=== PATIENT | male | born 1935 | race African-American/Black ===

== ENCOUNTER 2024-09-21 15:34 | Emergency (ER) | payer MEDICARE, OTHER, SELFPAY ==
[2024-09-21 15:55] VITALS: BP 173/80; PULSE 53; RESP 20; TEMP 36.6; O2SAT 96; BMI 25.5
--- NOTE | 2024-09-21 16:05 | EKG_ITS ---
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1935 Requested By: Fahad Disla ([facility]) Order Number: [id number] Reading MD: Fahad Disla ([facility]) Measurements Intervals [place] Rate: 90 P: 47 OR: 179 QRS: -34 QRSD: 82 T: 20 QT: 376 QTc: 460 Interpretive Statements SINUS RHYTHM WITH OCCASIONAL SUPRAVENTRICULAR PREMATURE COMPLEXES MARKED LEFT AXIS DEVIATION [QRS AXIS < -30] LEFT VENTRICULAR HYPERTROPHY AND ST-T CHANGE [VOLTAGE CRITERIA PLUS ST/T ABNORMALITY] Compared to ECG 04/23/2021 09:32:50 Left-axis deviation now present Left ventricular hypertrophy now present ST (T wave) deviation now present /store/S0/[id number]/ecg/[id number].pdf
--- NOTE | 2024-09-21 16:05 | XR_ITS ---
Examination: PA lateral chest 2 views Technique: Upright PA lateral chest 2 views Exam date and time: September 21, 2024 1443 hrs. Indications: Shortness of breath chest pain beginning 5 days ago Findings: Normal heart size Scarring at the left lung base No lobar pneumonia or pulmonary edema Moderate thoracic spondylosis Impression: No pneumonia or pulmonary edema
--- NOTE | 2024-09-21 16:07 | PD.EDRME ---
Rapid Medical Screening Exam RME Arrival date/time: 09/21/24 15:34 89-year-old male with past medical history of hypertension and diabetes presents emergency department with granddaughter at bedside with multiple complaints of diarrhea, shortness of breath, generalized weakness, and visual hallucinations that have been ongoing for several days. Chief Complaint: Back Pain/Injury Time Seen by Provider: 09/21/24 16:05 Vital signs: Vital Signs Temperature 98 F 09/21/24 15:55 Pulse Rate 53 L 09/21/24 15:55 Respiratory Rate 20 09/21/24 15:55 Blood Pressure 173/80 H 09/21/24 15:55 Pulse Oximetry (%) 96 09/21/24 15:55 Oxygen Delivery Method Room Air 09/21/24 15:55 Vital signs reviewed by provider: Yes
--- NOTE | 2024-09-21 16:08 | XR_ITS ---
Examination: CT brain head without contrast. 2-D sagittal coronal reconstructions Date and time of exam:September 21, 2024 1632 hrs. Indications: Onset visual hallucinations beginning 3 days ago CTDI: vol (mGy):51.6 DLP: (mGycm):1069 Technique: Multiple CT axial sections of the brain have been obtained, 5 mm slice thickness. Contrast has not been administered. 2-D sagittal, coronal reconstructions have been obtained Low dose protocols were performed. One or more of the following dose reduction techniques were used; automated exposure control, adjustment of the mA and/or KV according to patient size, use of iterative reconstruction technique. Findings: No significant ventricular enlargement. Intra-axial or extra-axial hemorrhage density is not seen. No mass effect or midline shift Basal cisterns are not remarkable. Fourth ventricle is midline. Cranial vault intact. Impression: Negative for acute hemorrhage, mass effect or midline shift Consider brain MRI follow-up
[2024-09-21 16:24] LABS: Basophils # (Auto) 0.1 Thou/mm3 (0.0-0.2); Basophils % (Auto) 1 % (0-2.5); Eosinophils # (Auto) 0.1 Thou/mm3 (0.0-0.5); Eosinophils % (Auto) 1 % (0-10); Hematocrit 38.9 % (41.0-53.0); Hemoglobin 13.2 g/dL (13.5-16.0); Immature Granulocytes % (Auto) 0 % (0-0); Immature Granulocytes Auto 0.03 Thou/mm3 (0.00-0.00); Lymphocytes # (Auto) 2.9 Thou/mm3 (1.0-4.8); Lymphocytes % (Auto) 31 % (10-50); Mean Corpuscular HGB Conc 33.9 g/dl (31.0-37.0); Mean Corpuscular Hemoglobin 29.4 pg (25.0-35.0); Mean Corpuscular Volume 87 fL (80-100); Monocytes # (Auto) 0.8 Thou/mm3 (0.0-0.8); Monocytes % (Auto) 9 % (0-12); Neutrophils # (Auto) 5.3 Thou/mm3 (1.8-7.7); Neutrophils % (Auto) 58 % (37-80); Nucleated Red Blood Cell % 0 /100 WBC (0); Platelet Count 338 Thou/mm3 (140-440); RDW Standard Deviation 40.7 fL (35.1-43.9); Red Blood Count 4.49 Miln/mm3 (4.50-5.90); White Blood Count 9.2 Thou/mm3 (3.8-10.6)
[2024-09-21 16:42] LABS: INR 1.1 (0.9-1.3); Partial Thromboplastin Time 28.9 Seconds (22.0-36.0); Prothrombin Time 11.7 Seconds (9.0-12.2)
[2024-09-21 16:44] LABS: B-Type Natriuretic Peptide 547 pg/mL (0-100)
[2024-09-21 16:54] LABS: Alanine Aminotransferase < 7 U/L (10-49); Albumin, Serum 4.6 gm/dL (3.4-4.8); Albumin/Globulin Ratio 1.4 (1.2-2.2); Alkaline Phosphatase 90 U/L (46-116); Anion Gap 10 (7-16); Aspartate Amino Transferase 23 U/L (0-34); BUN/Creatinine Ratio 11 Ratio (12-20); Bilirubin,Total 0.8 mg/dL (0.3-1.2); Blood Urea Nitrogen 22 mg/dL (9-23); Calcium 9.9 mg/dL (8.3-10.6); Calcium (Corrected) 9.9 mg/dL (8.5-10.1); Carbon Dioxide 24.1 mMol/L (20.0-31.0); Chloride 102 mMol/L (98-107); Estimated Creatinine Clearance 24.3 mL/min (>60); Globulin 3.3 gm/dL (2.3-3.5); Glucose 165 mg/dL (74-106); Magnesium 1.8 mg/dL (1.6-2.6); Osmolality,Calculated 279 (275-295); Sodium 136 mMol/L (136-145); Total Protein 7.9 gm/dL (5.7-8.2); Troponin I 0.033 ng/mL (0.0-0.045); eGFR 32 See Note
--- NOTE | 2024-09-21 16:54 | EDNOTE_ITS ---
<Statement entered by Rachel Carlos MD - 09/21/24 22:06> As co-signing physician, I was present and available for consult prn. I concur with the plan and care as documented by the midlevel provider. ED Back Injury Pain RME/HPI General Chief Complaint: Back Pain/Injury Stated Complaint: BACK PAIN X 3 DAYS; DIARRHEA Time Seen by Provider: 09/21/24 16:05 Arrival date/time: 09/21/24 15:34 RME / HPI RME / HPI Narrative: 89-year-old male with past medical history of hypertension and diabetes presents emergency department with granddaughter at bedside with multiple complaints of diarrhea, shortness of breath, generalized weakness, and visual hallucinations that have been ongoing for several days. It comes and goes, severity mild. Patient also told me that for the last few days he been ran out of his m edication for diabetes and blood pressure. Family does pick up and delivery driver the medications this afternoon. Related Data Home Medications ?Medication ?Instructions ?Recorded ?Confirmed Amitriptyline Hcl * (ELAVIL *) 10 mg PO BID #0 tabs 12/05/16 Aspirin Ec * (ECOTRIN *) 81 mg PO QDAY ##0 12/05/16 Doxazosin Mesylate 2 mg PO QDAY ##0 12/05/16 Misoprostol * (CYTOTEC *) 2 tab PO BID #0 tabs 12/05/16 Multivitamins * (CENTRUM *) 1 tab PO QDAY #0 tabs 12/05/16 Promethazine Hcl SYRUP * 2 tbsp PO Q6HR PRN COUGH #0 mL 12/05/16 (PHENERGAN SYRUP *) baclofen 10 mg tablet 10 mg PO QDAY #0 tabs 12/05/16 cyanocobalamin (vitamin B-12) 1,000 mcg PO QDAY #0 tabs 12/05/16 1,000 mcg tablet (Vitamin B-12) glipizide 5 mg tablet 5 mg PO QDAY #0 tabs 12/05/16 hydrochlorothiazide 25 mg tablet 12.5 mg PO QDAY #0 tabs 12/05/16 lisinopril 10 mg tablet 5 mg PO QDAY #0 tabs 12/05/16 lisinopril 20 mg tablet 10 mg PO QDAY #0 tabs 12/05/16 loratadine 10 mg tablet (Claritin) 10 mg PO QDAY #0 tabs 12/05/16 pioglitazone 30 mg tablet (Actos) 30 mg PO QDAY #0 tabs 12/05/16 ranitidine HCl 150 mg tablet 150 mg PO BID #0 tabs 12/05/16 (Zantac) venlafaxine 75 mg capsule,extended 75 mg PO QDAY ##0 12/05/16 release 24 hr (Effexor XR) Allergies Allergy/AdvReac Type Severity Reaction Status Date / Time Penicillins Allergy Severe Swelling Verified 09/21/24 15:36 of Lip/Tongue/Throat shellfish derived Allergy Severe Swelling Verified 09/21/24 15:36 Review of Systems Review of Systems Narrative Review of Systems: Review of system reviewed and within normal limits except mentioned in HPI ED Exam Narrative Physical exam: VITAL SIGNS: Reviewed. GENERAL APPEARANCE: Alert and interactive, follows commands, no acute distress, HEAD AND FACE: Non-traumatic. ENT: PERRL, pink conjunctivitis, eyelid no trauma, Mucous membrane dry NECK: Supple, nontender, no nuchal rigidity. CHEST: No tenderness, no crepitus, no paradoxical movement, no retractions. LUNGS: Clear, well ventilated, symmetric, no rales, no wheezing, no ronchi, no stridor, good breath sounds bilaterally. HEART: Regular rate, regular rhythm, no murmur, no gallops. ABDOMEN: Soft, positive bowel sounds, nondistended, no guarding, nontender, no rebound, no masses, RECTAL: Deferred. GENITAL: Deferred. NEUROLOGICAL: Gross motor function intact sensory function intact, Appropriate for age. MUSCULOSKELETAL: low back nontender, full range of motion. EXTREMITIES: Nontender, full range of motion. SKIN: Color pink, dry, no rash, no lacerations, no abrasions, no contusions. LYMPHATICS: Deferred. Course Quality Measures none Orders Category Date Time Status EKG (ED ONLY) *Do not use* NOW Care 09/21/24 16:[address] head/brain wo con Stat Exams 09/21/24 16:08 Completed EKG (ED Only) Stat Exams 09/21/24 16:05 Draft XR chest 2V Stat Exams 09/21/24 16:05 Completed B-Type Natriuretic Peptide Stat Lab 09/21/24 16:16 Completed CBC Stat Lab 09/21/24 16:16 Completed Comprehensive Metabolic Panel Stat Lab 09/21/24 16:16 Completed Drug Screen,Urine Stat Lab 09/21/24 16:39 Completed Magnesium Stat Lab 09/21/24 16:16 Completed Partial Thromboplastin Time Stat Lab 09/21/24 16:16 Completed Prothrombin Time with INR Stat Lab 09/21/24 16:16 Completed Troponin I Stat Lab 09/21/24 16:16 Completed Urinalysis Stat Lab 09/21/24 16:39 Completed ALPRazoLAM [Xanax] Med 09/21/24 19:06 Discontinued 0.25 mg PO X1 ONE Sodium Chloride 0.9% 1000 ml [Ns] 1,000 ml Med 09/21/24 17:01 Discontinued IV 999 mls/hr Vital Signs Vital signs: Vital Signs Temperature 98 F 09/21/24 15:55 Pulse Rate 53 L 09/21/24 15:55 Respiratory Rate 20 09/21/24 15:55 Blood Pressure 173/80 H 09/21/24 15:55 Pulse Oximetry (%) 96 09/21/24 15:55 Oxygen Delivery Method Room Air 09/21/24 15:55 Back Pain / Injury MDM Narrative MDM Narrative:: 89-year-old male with past medical history of hypertension and diabetes presents emergency department with granddaughter at bedside with multiple complaints of diarrhea, shortness of breath, generalized weakness, and visual hallucinations that have been ongoing for several days. It comes and goes, severity mild. Patient also told me that for the last few days he been ran out of his medication for diabetes and blood pressure. Patient's workup all came back unremarkable except for slightly elevated BNP and creatinine of 2.0. Urinalysis no UTI CT scan of the head came back unremarkable. Chest x-ray also came back unremarkable. Patient data External records reviewed:: None Clinical information provided by:: patient and family Social determinants that could affect healthcare access:: none Patient has the following chronic illnesses:: Hypertension How is presenting disease/condition affected by chronic disease/condition?: exacerbated by Evaluation data The following diagnostics were reviewed and interpreted by me:: lab results, radiology exam(s) and EKG tracing(s) Lab and/or radiology exams considered but not ordered:: None Interpretation Summary: EKG shows sinus rhythm, ventricular to 90 bpm, WA interval 1 79 MS, no ST segment elevation depression noted. Patient's CT scan of the head came back unremarkable. Chest x-ray also came back with no acute pathology noted. Laboratory workup no UTI CBC no leukocytosis, CMP slight elevated creatinine of 2.0 which is the patient's baseline. BNP 547. Medications / Prescriptions Medications or Prescriptions considered but not ordered:: none Medication administrations:: Medication Administration History Discontinued Medications Alprazolam (Alprazolam 0.25 Mg Tablet) 0.25 mg PO X1 ONE Stop: 09/21/24 19:07 Sodium Chloride (Ns) 1,000 mls @ 999 mls/hr IV .Q1H1M ONE Stop: 09/21/24 18:01 Last Infusion: 09/21/24 18:14 Dose: Infused Documented By: Admin: 09/21/24 17:26 Dose: 999 mls/hr Documented By: MS Johnson, and IV fluids for addition Consultations Consultation(s) initiated? (list below): No Diagnosis Differential diagnosis back pain/injury: other (Dehydration gastroenteritis, poor medication compliance) Most likely diagnosis given after review of the tests above:: Dehydration, gastroenteritis Admission Indicated Admission indicated?: not indicated Admission Request Was there a request for admission?: No Disposition Plan Disposition Plan: Discharge Discharge Attestation Discharge Attestation: The patient and all family members were given an opportunity to ask questions and understood the discharge instructions. Discharge instructions specifically effects, indications for sooner follow up or return to the emergency department, and the expected course of current diagnosis. Patient condition: Stable Discharge Plan Plan Patient Disposition: HOME (Self Care) Disposition Comment: stable Prescriptions/Referrals Prescriptions/Med Rec: No Action Amitriptyline Hcl * (ELAVIL *) 10 MG tablet 10 mg PO BID Qty: 0 Aspirin Ec * (ECOTRIN *) 81 MG TABLET.DR 81 mg PO QDAY Qty: 0 cyanocobalamin (vitamin B-12) [Vitamin B-12] 1,000 MCG tablet 1,000 mcg PO QDAY Qty: 0 baclofen 10 MG tablet 10 mg PO QDAY Qty: 0 Doxazosin Mesylate 2 MG tablet 2 mg PO QDAY Qty: 0 venlafaxine [Effexor XR] 75 MG capsule,extended release 24hr 75 mg PO QDAY Qty: 0 lisinopril 20 MG tablet 10 mg PO QDAY Qty: 0 ranitidine HCl [Zantac] 150 MG tablet 150 mg PO BID Qty: 0 lisinopril 10 MG tablet 5 mg PO QDAY Qty: 0 hydrochlorothiazide 25 MG tablet 12.5 mg PO QDAY Qty: 0 pioglitazone [Actos] 30 MG tablet 30 mg PO QDAY Qty: 0 Patient Comments: FOR DIABETES loratadine [Claritin] 10 MG tablet 10 mg PO QDAY Qty: 0 glipizide 5 MG tablet 5 mg PO QDAY Qty: 0 Misoprostol * (CYTOTEC *) tablet 2 tab PO BID Qty: 0 Multivitamins * (CENTRUM *) 1 EACH tablet 1 tab PO QDAY Qty: 0 Promethazine Hcl SYRUP * (PHENERGAN SYRUP *) 6.25 MG/5 ML syrup 2 tbsp PO Q6HR PRN (Reason: COUGH) Qty: 0 Patient Comments: FOR NAUSEA OR VOMITING Referrals: No Primary/Family,Physician [Primary Care Provider] - In 1 week Problem List Clinical Impression: Acute dehydration, Gastroenteritis Patient/Caregiver Discharge Instructions Discharge Activity: activity as tolerated Education Materials: Dehydration Additional Instructions: Thank you for the opportunity for serving you today. You are stable for discharged . You are advised to: Follow-up with your PCP in 1 to 2 days Return to ED for worsening of symptoms Take medication as prescribed by your PCP Take your blood pressure medications right away when you arrive home Print Language: Lithuanian Stand Alone Forms: Bianca Award Info., Patient Portal Info Letter PA/CARLOS Supervising Physician MARY LOU/CARLOS Supervising Physician: MD Breanna
[2024-09-21 16:59] VITALS: BP 158/106; PULSE 99; RESP 17; TEMP 36.7; O2SAT 99
[2024-09-21 17:10] LABS: Collection Type, Urine Clean Catch
[2024-09-21 17:23] LABS: Bilirubin,Urine Negative (Negative); Blood,Urine 1+ (Negative); Clarity,Urine Clear (Clear/Hazy); Color,Urine Yellow (Lt Yel-Yel); Glucose, Urine Negative (Negative); Ketones,Urine Negative (Negative); Leukocyte Esterase,Urine Negative (Negative); Nitrite,Urine Negative (Negative); PH,Urine 5.5 (5.0-7.0); Protein,Urine 2+ (Neg - Trace); RBC,Urine 6 /hpf (0-3); Specific Gravity,Urine 1.015 (1.001-1.035); Squamous Epithelial Cell,Urine < 1 /hpf (0-5); Urobilinogen,Urine Negative mg/dL (0.0-1.0); WBC,Urine 2 /hpf (0-5)
[2024-09-21] MEDS: SODIUM CHLORIDE 0.9% 1000 ML 1,000 ML 999 ML IV (17:26)
[2024-09-21 17:47] LABS: Amphetamine/Methamp Scrn,U Negative (Negative); Barbiturate Screen,Urine Negative (Negative); Benzodiazepines Screen,Urine Negative (Negative); Benzoylecgonine Screen, Ur Negative (Negative); Fentanyl Screen,Urine Negative (Negative); Opiate Screen,Urine Negative (Negative); THC Screen,Urine Negative (Negative)
[2024-09-21 18:27] VITALS: BP 179/104; PULSE 80; RESP 24; TEMP 36.8; O2SAT 98
[2024-09-21] MEDS: ALPRazoLAM 0.25 MG TABLET PO (19:20)
[2024-09-21 19:49] VITALS: BP 170/116; PULSE 87; RESP 18; TEMP 36.7; O2SAT 99
== END 2024-09-21 19:29 | disposition home or self-care (01) ==
PROVIDERS: Emergency Provider Emergency Medicine
DX: E86.0 Dehydration (principal); K52.9 Noninfective gastroenteritis and colitis, unspecified; I10 Essential (primary) hypertension; E11.9 Type 2 diabetes mellitus without complications; R44.1 Visual hallucinations; R06.02 Shortness of breath
CPT/HCPCS: 36415; 70450; 71046; 80053; 80307; 81001; 83735; 83880; 84484; 85025; 85610; 85730; 93005; 96360; 99284; J7030; A9270

== ENCOUNTER → 2024-10-11 | Outpatient (CLI) | payer MEDICARE, OTHER, SELFPAY ==
--- NOTE | 2024-10-11 13:30 | ECHO_ITS ---
Transthoracic Echo Report Ht (in): 66 Wt (lb): 164 Exam Location: Echo Lab Status: Preadmit Medicine Assistant: Sindy Mcbride Indications: Procedure Performed: BP: / HR: Rhythm: PVCs Technical Quality: Fair MEASUREMENTS (Male / Female) Normal Values 2D ECHO LV Diastolic Diameter PLAX 4.7 cm 4.2 - 5.9 / 3.9 - 5.3 cm LV Systolic Diameter PLAX 3.5 cm IVS Diastolic Thickness 0.7 cm 0.6 - 1.0 / 0.6 - 0.9 cm LVPW Diastolic Thickness 0.8 cm 0.6 - 1.0 / 0.6 - 0.9 cm LV Relative Wall Thickness 0.3 LVOT Diameter 2.0 cm LA Volume Index 22.7 cm?/m? 16 - 28 cm?/m? Ascending Aorta Diameter 3.8 cm M-MODE Aortic Root Diameter MM 3.3 cm LA Systolic Diameter MM 3.2 cm LA Ao Ratio MM 1.0 AV Cusp Separation MM 1.8 cm DOPPLER AV Peak Velocity 114.0 cm/s AV Peak Gradient 5.2 mmHg AV Mean Gradient 3.0 mmHg AV Velocity Time Integral 18.7 cm AI Peak Velocity 362.0 cm/s AI Peak Gradient 52.4 mmHg AI Pressure Half Time 297.5 ms LVOT Peak Velocity 88.7 cm/s LVOT Peak Gradient 3.1 mmHg LVOT Velocity Time Integral 13.3 cm AV Area Cont Eq vti 2.2 cm? AV Area Cont Eq pk 2.4 cm? MV Peak Velocity 103.0 cm/s MV Peak Gradient 4.2 mmHg MV Mean Velocity 54.3 cm/s MV Mean Gradient 1.0 mmHg MV Area PHT 4.7 cm? Mitral E Point Velocity 57.7 cm/s Mitral A Point Velocity 82.9 cm/s Mitral E to A Ratio 0.7 LV E' Lateral Velocity 6.0 cm/s Mitral E to LV E' Lateral Ratio 9.6 LV E' Septal Velocity 6.3 cm/s Mitral E to LV E' Septal Ratio 9.1 FINDINGS Left Ventricle Normal left ventricular size, wall thickness, systolic function. Hyp[place] mid anterior septal wal l. The ejection fraction is visually estimated at 50-55%. Right Ventricle The right ventricle is normal in size and systolic function. Left Atrium The left atrium is normal by two-dimensional, color flow and Doppler imaging with no structural abnormalities, no thrombus formation present. Right Atrium The right atrium is normal by two-dimensional imaging, color flow and Doppler imaging with no struct ural abnormalities, no thrombus formation present. Atrial Septum The interatrial septum appears normal with no evidence of a shunt. Aorta The ascending aorta is mildly dilated. 3.8cm. Mitral Valve The mitral valve is normal by two-dimensional, color flow and Doppler interrogation. There is trace mitral valve regurgitation. Aortic Valve The aortic valve is trileaflet. Mild sclerosis without stenosis. There is mild to moderate aortic valve regurgitation. Tricuspid Valve The tricuspid valve is normal by two-dimensional, color flow and Doppler interrogation. There is no significant tricuspid valve regurgitation. Pulmonic Valve The pulmonic valve is not well visualized. There is no significant pulmonic valve regurgitation. Vessels The pulmonary artery appears normal. The inferior vena cava pulmonary and hepatic veins appear bing l. Pericardium The pericardium is normal by two-dimensional imaging. There is no significant pericardial effusion. CONCLUSIONS Indication: HTN Normal LV size and function. Mild hypokinesis mid anterior septal wall. Stage I diastolic dysfuncti on. Estimated EF 50-55% Normal RV size and function. The ascending aorta is mildly dilated. 3.8cm. Mild to moderate AI. Trace MR Mild AV sclerosis without stenosis. Paco Paredes (Electronically Signed) Final Date: 11 October 2024 18:55
== END | disposition home or self-care (01) ==
LOC: SDIM 12:11
PROVIDERS: PCP Family Medicine; Referring Provider Family Medicine; Visit Provider Family Medicine
DX: I08.0 Rheumatic disorders of both mitral and aortic valves (principal)
CPT/HCPCS: 93306

== ENCOUNTER → 2024-11-07 | Outpatient (CLI) | payer MEDICARE, OTHER, SELFPAY ==
[2024-11-07 12:00] LABS: Basophils # (Auto) 0.1 Thou/mm3 (0.0-0.2); Basophils % (Auto) 1 % (0-2.5); Eosinophils # (Auto) 0.2 Thou/mm3 (0.0-0.5); Eosinophils % (Auto) 2 % (0-10); Hematocrit 39.1 % (41.0-53.0); Hemoglobin 12.9 g/dL (13.5-16.0); Immature Granulocytes % (Auto) 0 % (0-0); Immature Granulocytes Auto 0.03 Thou/mm3 (0.00-0.00); Lymphocytes # (Auto) 2.5 Thou/mm3 (1.0-4.8); Lymphocytes % (Auto) 35 % (10-50); Mean Corpuscular Hemoglobin 28.9 pg (25.0-35.0); Mean Corpuscular Volume 88 fL (80-100); Monocytes # (Auto) 0.5 Thou/mm3 (0.0-0.8); Monocytes % (Auto) 8 % (0-12); Neutrophils # (Auto) 3.8 Thou/mm3 (1.8-7.7); Neutrophils % (Auto) 54 % (37-80); Nucleated Red Blood Cell % 0 /100 WBC (0); Platelet Count 300 Thou/mm3 (140-440); RDW Standard Deviation 42.2 fL (35.1-43.9); Red Blood Count 4.47 Miln/mm3 (4.50-5.90)
[2024-11-07 12:05] LABS: Glucose Estimated Average 194 mg/dL (80-131); Hemoglobin A1C 8.4 % Hgb (4.8-6.0)
[2024-11-07 12:14] LABS: Creatinine MALB Rnd Ur 122 mg/dL (30-125); Microalbumin Creat Ratio 106 mg/gCrea (<30); Microalbumin, Random Urine 129 mg/L (0-300)
[2024-11-07 12:15] LABS: Alanine Aminotransferase 11 U/L (10-49); Albumin, Serum 4.3 gm/dL (3.4-4.8); Alkaline Phosphatase 96 U/L (46-116); Anion Gap 10 (7-16); Aspartate Amino Transferase 13 U/L (0-34); BUN/Creatinine Ratio 14 Ratio (12-20); Bilirubin,Direct 0.2 mg/dL (0.0-0.3); Bilirubin,Total 0.5 mg/dL (0.3-1.2); Blood Urea Nitrogen 27 mg/dL (9-23); Calcium 9.7 mg/dL (8.3-10.6); Carbon Dioxide 26.9 mMol/L (20.0-31.0); Cardiac Risk Estimate 3.7 RATIO (4.0-6.7); Chloride 101 mMol/L (98-107); Cholesterol 184 mg/dL (132-200); Creatinine (Component) 1.9 mg/dL (0.6-1.3); Glucose 168 mg/dL (74-106); HDL Cholesterol 50 mg/dL (40-60); LDL Cholesterol,Calculated 118 mg/dL (0-130); Osmolality,Calculated 284 (275-295); Phosphorous 3.2 mg/dL (2.4-5.1); Potassium 4.6 mMol/L (3.4-5.1); Sodium 138 mMol/L (136-145); Total Protein 7.2 gm/dL (5.7-8.2); Triglycerides 78 mg/dL (30-150); eGFR 34 See Note
== END | disposition home or self-care (01) ==
LOC: COPL 10:25
PROVIDERS: PCP Family Medicine; Referring Provider Family Medicine; Visit Provider Internal Medicine
DX: I12.9 Hypertensive chronic kidney disease with stage 1 through stage 4 chronic kidney disease, or unspecified chronic kidney disease (principal); E11.22 Type 2 diabetes mellitus with diabetic chronic kidney disease; N18.32 Chronic kidney disease, stage 3b; E11.65 Type 2 diabetes mellitus with hyperglycemia; E78.5 Hyperlipidemia, unspecified
CPT/HCPCS: 36415; 80048; 80061; 80069; 80076; 82043; 82570; 83036; 84100; 85025

== ENCOUNTER → 2025-02-03 | Outpatient (CLI) | payer MEDICARE, OTHER, SELFPAY ==
[2025-02-03 17:54] LABS: Anion Gap 10 (7-16); BUN/Creatinine Ratio 13 Ratio (12-20); Blood Urea Nitrogen 25 mg/dL (9-23); Calcium 9.2 mg/dL (8.3-10.6); Calcium (Corrected) 9.2 mg/dL (8.5-10.1); Chloride 108 mMol/L (98-107); Glucose 164 mg/dL (74-106); Osmolality,Calculated 291 (275-295); Phosphorous 3.3 mg/dL (2.4-5.1); Sodium 142 mMol/L (136-145); eGFR 32 See Note
[2025-02-03 17:56] LABS: Vitamin D 25 Hydroxy Total 29.7 ng/mL (7.3-40.2)
== END | disposition home or self-care (01) ==
LOC: COPL 16:56
PROVIDERS: PCP Family Medicine; Referring Provider Internal Medicine; Visit Provider Internal Medicine
DX: I12.9 Hypertensive chronic kidney disease with stage 1 through stage 4 chronic kidney disease, or unspecified chronic kidney disease (principal); E11.22 Type 2 diabetes mellitus with diabetic chronic kidney disease; N18.32 Chronic kidney disease, stage 3b
CPT/HCPCS: 36415; 80069; 82306

== ENCOUNTER 2025-04-08 23:21 | Emergency (ER) | payer MEDICARE, OTHER, SELFPAY ==
[2025-04-08 23:39] VITALS: PULSE 106
[2025-04-08 23:50] VITALS: BP 112/68; PULSE 98; RESP 18; TEMP 36.4; O2SAT 93
--- NOTE | 2025-04-08 23:59 | XR_ITS ---
Examination: CT brain head without contrast. 2-D sagittal coronal reconstructions Date and time of exam:April 09, 2025 0015 hours INDICATIONS: Head pain nausea vomiting and weakness today CTDI: vol (mGy):49.6 DLP: (mGycm):956 Technique: Multiple CT axial sections of the brain have been obtained, 5 mm slice thickness. Contrast has not been administered. 2-D sagittal, coronal reconstructions have been obtained Low dose protocols were performed. One or more of the following dose reduction techniques were used; automated exposure control, adjustment of the mA and/or KV according to patient size, use of iterative reconstruction technique. Findings: No significant ventricular enlargement. Intra-axial or extra-axial hemorrhage density is not seen. No mass effect or midline shift Basal cisterns are not remarkable. Fourth ventricle is midline. Cranial vault intact. Impression: Negative for acute hemorrhage, mass effect or midline shift
--- NOTE | 2025-04-09 00:08 | XR_ITS ---
Examination: CTA abdomen, with intravenous contrast. CTA pelvis, with intravenous contrast. 2-D sagittal and coronal reconstructions. 3-D reconstructions. 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 60 cc of Isovue 300 is administered intravenously. Sagittal and coronal 2-D reconstructions are obtained. 3-D reconstructions, angiographic images are obtained. 3-D postprocessing, including vascular maximum intensity projections. Low dose protocols were performed. One or more of the following dose reduction techniques were used; automated exposure control, adjustment of the mA and/or KV according to patient size, use of iterative reconstruction technique. Findings: Benign liver cysts No definite gallstones Spleen is not enlarged 13 mm hypodense mass body of the pancreas axial image 66 Bilateral benign renal cysts No abdominal aortic aneurysmal dilatation Right common external and internal iliac artery stents with 9 x 10 x 7 cm mass arising off the right common iliac artery consistent with aneurysm Contrast does not accumulate in this aneurysm Intact urinary bladder Colonic diverticulosis with thickening of the sigmoid colon Thickening of the rectal wall Prostatomegaly transverse dimension of 5 cm Extensive lumbar spondylosis IMPRESSION: 13 mm hypodense mass body of the pancreas which may represent a cyst, recommend MRI abdomen pancreas follow up pre and postcontrast Right common iliac external iliac and internal iliac patent stent 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
--- NOTE | 2025-04-09 00:08 | XR_ITS ---
Examination: CTA chest with intravenous contrast 2-D reconstructions 3-D reconstructions, vascular Date and time of exam: April 09, 2025 0326 hours Comparison October 05, 2015, CT abdomen April 23, 2021 INDICATIONS: Nausea vomiting abdominal chest pain today CTDI: vol (mGy) 15 DLP: (mGycm) 288 Technique: Multiple axial sections of the thorax have been obtained. 3 mm slice thickness, from below the hemidiaphragms to above the apices of the lungs. Mediastinal and lung density settings have been obtained. 2-D sagittal and coronal reconstructions. 3-D angiographic renderings, 3-D volume renderings, 3D post processing, vascular maximum intensity projections obtained. Contrast administered is 60 cc Isovue 300 intravenous. Low dose protocols were performed. One or more of the following dose reduction techniques were used; automated exposure control, adjustment of the mA and/or KV according to patient size, use of iterative reconstruction technique. Findings: Mediolateral dimension ascending thoracic aorta 4.3 cm No pulmonary artery filling defects Small pericardial effusion No paratracheal tracheobronchial or bronchopulmonary adenopathy 2 mm pulmonary nodule left upper lobe image 70 2 mm pulmonary nodule medial upper right lung image 111 3 mm pulmonary nodule right lower lobe image 178 Atelectasis versus early pneumonia right base IMPRESSION: Medial lateral dimension ascending thoracic aorta 4.3 cm no aortic dissection Negative for pulmonary artery emboli Atelectasis versus early pneumonia right base, clinical correlation is advised Subcentimeter pulmonary nodules as above, with this study as baseline recommend 6 month follow-up CT chest without contrast
--- NOTE | 2025-04-09 00:09 | PD.EDABDPN ---
ED Abdominal Pain RME/HPI General Chief Complaint: Nausea/Vomiting/Diarrhea Stated complaint: N/V, ABD PAIN, WEAKNESS Time seen by provider: 04/08/25 23:58 Arrival date/time: 04/08/25 23:21 RME / HPI RME / HPI narrative: DR. JIANG MAIN ED EVALUATION: 89 y/o male with Hx of Aneurysm, Hypertension, and Diabetes Mellitus Type 2 BIBA from home presents to ED c/o abdominal pain, nausea, vomiting, and constipation x several days. He was attempting to use the restroom, then sat on the floor stating he felt hot . Patient uses a cane to ambulate at home. Per EMS, patient was not able to get out of bed on his own. Patient does not recall when his last bowel movement occurred. Patient does not currently feel any abdominal pain. Denies falling and hitting his head. Denies recent history of smoking, history of alcohol consumption, and recent international travel. Patient has a remote history of smoking. Denies fever. No other concerns or complaints expressed at this time. Related Data Home Medications ?Medication ?Instructions ?Recorded ?Confirmed Amitriptyline Hcl * (ELAVIL *) 10 mg PO BID #0 tabs 12/05/16 Aspirin Ec * (ECOTRIN *) 81 mg PO QDAY ##0 12/05/16 Doxazosin Mesylate 2 mg PO QDAY ##0 12/05/16 Misoprostol * (CYTOTEC *) 2 tab PO BID #0 tabs 12/05/16 Multivitamins * (CENTRUM *) 1 tab PO QDAY #0 tabs 12/05/16 Promethazine Hcl SYRUP * 2 tbsp PO Q6HR PRN COUGH #0 mL 12/05/16 (PHENERGAN SYRUP *) baclofen 10 mg tablet 10 mg PO QDAY #0 tabs 12/05/16 cyanocobalamin (vitamin B-12) 1,000 mcg PO QDAY #0 tabs 12/05/16 1,000 mcg tablet (Vitamin B-12) glipizide 5 mg tablet 5 mg PO QDAY #0 tabs 12/05/16 hydrochlorothiazide 25 mg tablet 12.5 mg PO QDAY #0 tabs 12/05/16 lisinopril 10 mg tablet 5 mg PO QDAY #0 tabs 12/05/16 lisinopril 20 mg tablet 10 mg PO QDAY #0 tabs 12/05/16 loratadine 10 mg tablet (Claritin) 10 mg PO QDAY #0 tabs 12/05/16 pioglitazone 30 mg tablet (Actos) 30 mg PO QDAY #0 tabs 12/05/16 ranitidine HCl 150 mg tablet 150 mg PO BID #0 tabs 12/05/16 (Zantac) venlafaxine 75 mg capsule,extended 75 mg PO QDAY ##0 12/05/16 release 24 hr (Effexor XR) Allergies Allergy/AdvReac Type Severity Reaction Status Date / Time Penicillins Allergy Severe Swelling Verified 09/21/24 15:36 of Lip/Tongue/Throat shellfish derived Allergy Severe Swelling Verified 09/21/24 15:36 Review of Systems Review of Systems Systems Reviewed: All systems reviewed, normal except as documented Past Medical History Past Medical History CARDIAC: Positive Aneurysm and Hypertension ENDOCRINE: Positive Endocrine Disorders and Diabetes Mellitus Type 2 Surgical History SURGICAL: Positive Coronary Stent Social History SMOKING STATUS: Former smoker ED Exam Narrative Physical exam: GEN. APPEARANCE: The patient is alert awake oriented X-3 in no distress, lying down comfortably, does not look ill/toxic. Patient has good eye contact. Patient is cooperative. VITALS: All vitals were reviewed and the pulse ox is 97% on room air which is normal according to my interpretation. HEENT: Normocephalic, atraumatic. Pupils are equal and reactive. Oral mucosa is moist. Patent Nares NECK: Supple, nontender, no thyromegaly, no meningismus, no JVD CHEST: Symmetrical, atraumatic, and with equal expansion , Nontender on palpation no deformity and no crepitus. CARDIOVASCULAR: Heart regular rhythm no murmur or gallop rub or extra beats. LUNGS: Clear to auscultation bilaterally with symmetrical chest rise. No laboring tachypnea or wheezing. No intercostal subcostal retraction. No rales and no rhonchi. ABDOMEN: Soft, flat, nontender to palpation, no guarding or rebound tenderness. There are no abnormal masses palpated. EXTREMITIES: Nontender. No edema. No cyanosis. Patient is able to move all 4 extremities well, with full ROM and good CSM.2+ dp b/l symmetric intact SKIN: Warm and dry, no jaundice or rashes noted. NEURO: Patient is TATUM x 4, Cranial nerves II through XII grossly intact. There is no focal neurologic deficits noted. GCS is 15, PNS and SCALLOP BINDER appear grossly intact. PSYCHIATRIC: Patient is in normal mood and affect. Course Quality Measures none Orders Category Date Time Status CT Screening NOW Care 04/09/25 00:08 Active EKG (ED ONLY) *Do not use* NOW Care 04/09/25 05:23 Completed Straight [In and Out Catheter] X1 Care 04/09/25 03:[address] angio abdomen pelvis Stat Exams 04/09/25 00:[address] angio chest Stat Exams 04/09/25 00:[address] head/brain wo con Stat Exams 04/08/25 23:59 Taken EKG (ED Only) Stat Exams 04/09/25 05:23 Draft US venous doppler LE LT Stat Exams 04/09/25 03:03 Taken XR foot comp LT min 3V Stat Exams 04/09/25 03:03 Taken CBC Stat Lab 04/09/25 00:28 Completed CK [Creatine Kinase] Stat Lab 04/09/25 00:28 Completed CMP [Comprehensive Metabolic Panel] Stat Lab 04/09/25 00:28 Completed Lactic Acid [Lactate (Lactic Acid)] Stat Lab 04/09/25 00:28 Completed Prothrombin Time with INR Stat Lab 04/09/25 00:28 Completed Troponin I Stat Lab 04/09/25 00:28 Completed UA, C/S IF [Urinalysis, C/S if Indicated] Stat Lab 04/09/25 04:30 Completed Urinalysis, C/S if Indicated Stat Lab 04/09/25 00:00 Stop Req Levofloxacin/D5w 750Mg Ivpb [Levaquin Ivpb] Med 04/09/25 05:30 Active 750 mg in 150 ml IV NOW Ondansetron Inj [Zofran Inj] Med 04/09/25 00:01 Discontinued 4 mg IV NOW ONE Vital Signs Vital signs: Vital Signs Temperature 97.5 F 04/08/25 23:50 Pulse Rate 98 04/08/25 23:50 Respiratory Rate 18 04/08/25 23:50 Blood Pressure 112/68 04/08/25 23:50 Pulse Oximetry (%) 93 L 04/08/25 23:50 Oxygen Delivery Method Room Air 04/08/25 23:50 Abdominal Pain MDM MDM Narrative MDM Narrative:: Scribe Attestation: I, Sandra Church, am scribing for and in the presence of Dr. Jiang. Provider Notation: Although this document has been carefully reviewed, there may still be some phonetic and other typographical errors.? These errors are purely grammatical due to imperfections in the software program and should not be construed in any way to? compromise the substance of the patient's medical care during this visit. Labs with evidence of leukocytosis, no other significant acute metabolic abnormalities, troponin not elevated, EKG with evidence of first-degree heart block. CT chest with evidence of pneumonia, antibiotics provided. 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 Consulted Dr. Monroe will review the CT. Given that we do not have vascular surgery recommended transfer for vascular surgery. We did initiate transfer. Updated patient as well as his son José over the phone. 0551: Spoke with patient's son José. Reports patient had a vascular surgery at [facility] more than 10 years ago. Per patient, surgery was to the aorta. 0600: Care assumed by Dr. Song (emergency physician). Past medical, surgical, social and family history reviewed. Vitals and home medications reviewed. Results and treatment plan discussed. They will assume the care of the patient at this time and will follow the patient, pending labs and X-ray. Transfer initiated for vascular surgery. Patient data External records reviewed:: [facility] previous records (Reviewed prior ED records from 09/21/24. Patient was seen for Acute dehydration.) and EMS form Clinical information provided by:: patient and EMS Social determinants that could affect healthcare access:: none Patient has the following chronic illnesses:: Hypertension, Diabetes Mellitus Type 2 How is presenting disease/condition affected by chronic disease/condition?: exacerbated by Evaluation data The following diagnostics were reviewed and interpreted by me:: lab results and radiology exam(s) Lab and/or radiology exams considered but not ordered:: None Interpretation Summary: RADIOLOGY Head CT: Findings: There is no evidence of intracranial hemorrhage, mass effect or midline shift. There are periventricular white matter hypodensities, compatible with chronic small vessel ischemia. There is severe volume loss. The calvarium is unremarkable. The mastoid air cells and the visualized paranasal sinuses are clear. Impression: No evidence of intracranial hemorrhage, mass effect or midline shift. Periventricular chronic small vessel ischemia and volume loss Chest CTA: Findings: The thoracic aorta demonstrates mild atheromatous calcification without evidence of dissection. Aneurysmal dilation of the ascending aorta measuring up to 4.3 cm. The origins of the right brachiocephalic, left common carotid and left subclavian arteries are patent. There is no filling defect within the pulmonary artery divisions to suggest pulmonary thromboembolism. The mediastinum demonstrates no evidence of mass or lymphadenopathy. There is a small pericardial effusion. Right lower lobe consolidation. No evidence of pleural effusion or pneumothorax. Degenerative changes of the imaged portions of the spine. Chronic multilevel disc disease. No acute fractures. Please, see separate report for description of the abdominal findings. Impression: 1. No CT evidence of pulmonary thromboembolism or aortic dissection. 2. Aneurysmal dilatation of the ascending thoracic aorta. Follow-up is recommended. 3. Right lower lobe consolidation, suspicious for pneumonia. 4. Small pericardial effusion, consider pericarditis in the differential diagnosis. Abdomen/Pelvis Angio: Findings: The abdominal aorta demonstrates mild atheromatous calcification without evidence of dissection. The celiac, superior mesenteric, inferior mesenteric and bilateral renal arteries are patent to the extent visualized. The common iliac, external iliac and internal iliac arteries are patent bilaterally. The liver, gallbladder, spleen, pancreas, and adrenals are unremarkable. Bilateral renal simple cysts. No hydronephrosis. IVC filter in place. No evidence of bowel obstruction. No evidence of appendicitis. The urinary bladder is unremarkable. There is no free fluid, free air or abscess. The osseous structures are unremarkable. The lung bases are clear. 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 Enlarged prostate. Impression: 1. No evidence of abdominal aortic dissection. 2. 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 Vascular surgery consult is recommended. 3. Thickening of the rectosigmoid associated with peripheral fat stranding. 4. Diverticulosis of the colon. 5. Indeterminate abdominal pelvic mass, of uncertain etiology. Further evaluation is recommended. US Venous Doppler: Findings: Cheatham scale, color flow and spectral Doppler evaluation of the left lower extremity deep veins was performed. The common femoral, superficial femoral and popliteal veins are patent and compressible. Normal respiratory variation is noted. There is no evidence of occlusive or nonocclusive thrombus. The great saphenous vein is patent and compressible at the level of the saphenofemoral junction. Impression: No sonographic evidence of deep venous thrombosis in the left lower extremity Foot X-Ray: Pending official radiology report. Medications / Prescriptions Medications or Prescriptions considered but not ordered:: None Medication administrations:: Medication Administration History Levofloxacin/Dextrose (Levaquin Ivpb) 750 mg in 150 mls @ 100 mls/hr IV NOW ONE Stop: 04/09/25 06:59 Discontinued Medications Ondansetron HCl (Ondansetron Inj 2 Mg/Ml Inj 2 Ml) 4 mg IV NOW ONE; Protocol Stop: 04/09/25 00:02 Last Admin: 04/09/25 00:37 Dose: 4 mg Documented By: CCT See above if any Consultations Consultation(s) initiated? (list below): Yes Consultation #1 (Physician, Specialty, Details): Dr. Monroe made aware of the patient?s HPI, PMHx, lab and/or radiology results. Discussed treatment plan. Will call back. Initiated transfer for vascular surgery. Time: 05:39 Diagnosis Differential diagnosis abdominal pain: abdominal pain, constipation, diverticulitis, gastroenteritis, small bowel obstruction and other (Aneurysm) Most likely diagnosis given after review of the tests above:: Left foot pain, Pneumonia, Inter-abdominal tumor, Thrombosed aneurysm, Rectal sigmoiditis, Syncope, Leukocytosis. Admission Indicated Admission indicated?: not indicated Explain why admission is indicated or not indicated:: Pending Labs/X-Ray, and final disposition. Admission Request Was there a request for admission?: No Disposition Plan Disposition Plan: other (specify) (Signed-out to Dr. Song at 6 AM.) Critical Care Time Critical Care Time Critical Care Time: Yes Total Critical Care Time (min.): 45 Attestation: The high probability of sudden, clinically significant deterioration in the patient?s condition required the highest level of my preparedness to intervene urgently. The services I provided to this patient were to treat and/or prevent clinically significant deterioration. Services included the following: chart data review, reviewing nursing notes and/or old charts, documentation time, csm consultant collaboration regarding findings and treatment options, medication orders and management, direct patient care, vital sign assessments and ordering, interpreting and reviewing diagnostic studies and lab tests. Aggregate critical care time includes only time during which I was engaged in work directly related to the patient?s care, as described above, whether at bedside or elsewhere in the Emergency Department. It did not include time spent performing other reported procedures or the services of residents, students, nurses or physician assistants. Discharge Plan Prescriptions/Referrals Prescriptions/Med Rec: No Action Amitriptyline Hcl * (ELAVIL *) 10 MG tablet 10 mg PO BID Qty: 0 Aspirin Ec * (ECOTRIN *) 81 MG TABLET.DR 81 mg PO QDAY Qty: 0 cyanocobalamin (vitamin B-12) [Vitamin B-12] 1,000 MCG tablet 1,000 mcg PO QDAY Qty: 0 baclofen 10 MG tablet 10 mg PO QDAY Qty: 0 Doxazosin Mesylate 2 MG tablet 2 mg PO QDAY Qty: 0 venlafaxine [Effexor XR] 75 MG capsule,extended release 24hr 75 mg PO QDAY Qty: 0 lisinopril 20 MG tablet 10 mg PO QDAY Qty: 0 ranitidine HCl [Zantac] 150 MG tablet 150 mg PO BID Qty: 0 lisinopril 10 MG tablet 5 mg PO QDAY Qty: 0 hydrochlorothiazide 25 MG tablet 12.5 mg PO QDAY Qty: 0 pioglitazone [Actos] 30 MG tablet 30 mg PO QDAY Qty: 0 Patient Comments: FOR DIABETES loratadine [Claritin] 10 MG tablet 10 mg PO QDAY Qty: 0 glipizide 5 MG tablet 5 mg PO QDAY Qty: 0 Misoprostol * (CYTOTEC *) tablet 2 tab PO BID Qty: 0 Multivitamins * (CENTRUM *) 1 EACH tablet 1 tab PO QDAY Qty: 0 Promethazine Hcl SYRUP * (PHENERGAN SYRUP *) 6.25 MG/5 ML syrup 2 tbsp PO Q6HR PRN (Reason: COUGH) Qty: 0 Patient Comments: FOR NAUSEA OR VOMITING Referrals: Eric Tavares MD [Primary Care Provider] - In 1 week Problem List Clinical Impression: Foot pain, left, Syncope, Intra-abdominal tumor, Pneumonia, Sigmoiditis, Aneurysm artery, iliac, Leukocytosis Patient/Caregiver Discharge Instructions Print Language: Divehi
[2025-04-09] MEDS: ONDANSETRON INJ 2 MG/ML INJ 2 ML 4 MG IV (00:37)
[2025-04-09 00:38] LABS: Lactate (Lactic Acid) 1.9 mMol/L (0.4-2.0)
--- NOTE | 2025-04-09 00:42 | PRELIM_ITS ---
CT scan of the head without intravenous contrast (axial sections with sagittal and coronal reformats): April 09, 2025 at 0015 hours Clinical history: Intracranial hemorrhage. Comparison: None. Findings: There is no evidence of intracranial hemorrhage, mass effect or midline shift. There are periventricular white matter hypodensities, compatible with chronic small vessel ischemia. There is severe volume loss. The calvarium is unremarkable. The mastoid air cells and the visualized paranasal sinuses are clear. Impression: No evidence of intracranial hemorrhage, mass effect or midline shift. Periventricular chronic small vessel ischemia and volume loss. Report Electronically Signed By: James Multani 04/09/2025 12:41:20 AM [EST]
[2025-04-09 00:46] LABS: Basophils # (Auto) 0.1 Thou/mm3 (0.0-0.2); Basophils % (Auto) 0 % (0-2.5); Eosinophils # (Auto) 0.1 Thou/mm3 (0.0-0.5); Eosinophils % (Auto) 1 % (0-10); Hematocrit 35.4 % (41.0-53.0); Hemoglobin 12.2 g/dL (13.5-16.0); Immature Granulocytes % (Auto) 1 % (0-0); Immature Granulocytes Auto 0.17 Thou/mm3 (0.00-0.00); Lymphocytes # (Auto) 2.7 Thou/mm3 (1.0-4.8); Lymphocytes % (Auto) 16 % (10-50); Mean Corpuscular HGB Conc 34.5 g/dl (31.0-37.0); Mean Corpuscular Hemoglobin 30.3 pg (25.0-35.0); Mean Corpuscular Volume 88 fL (80-100); Monocytes % (Auto) 6 % (0-12); Neutrophils # (Auto) 13.1 Thou/mm3 (1.8-7.7); Neutrophils % (Auto) 77 % (37-80); Nucleated Red Blood Cell % 0 /100 WBC (0); Platelet Count 259 Thou/mm3 (140-440); Red Blood Count 4.02 Miln/mm3 (4.50-5.90); White Blood Count 17.1 Thou/mm3 (3.8-10.6)
[2025-04-09 00:57] LABS: Prothrombin Time 11.4 Seconds (9.0-12.2)
[2025-04-09 01:00] LABS: Alanine Aminotransferase 11 U/L (10-49); Albumin, Serum 3.8 gm/dL (3.4-4.8); Albumin/Globulin Ratio 1.4 (1.2-2.2); Alkaline Phosphatase 106 U/L (46-116); Anion Gap 9 (7-16); Aspartate Amino Transferase 20 U/L (0-34); BUN/Creatinine Ratio 8 Ratio (12-20); Bilirubin,Total 0.5 mg/dL (0.3-1.2); Blood Urea Nitrogen 18 mg/dL (9-23); Calcium 9.1 mg/dL (8.3-10.6); Calcium (Corrected) 9.3 mg/dL (8.5-10.1); Carbon Dioxide 23.1 mMol/L (20.0-31.0); Chloride 105 mMol/L (98-107); Creatine Kinase 92 U/L (34-171); Creatinine (Component) 2.2 mg/dL (0.6-1.3); Globulin 2.8 gm/dL (2.3-3.5); Glucose 233 mg/dL (74-106); Osmolality,Calculated 282 (275-295); Potassium 4.5 mMol/L (3.4-5.1); Sodium 137 mMol/L (136-145); Total Protein 6.6 gm/dL (5.7-8.2); Troponin I < 0.020 ng/mL (0.0-0.045); eGFR 28 See Note
[2025-04-09 03:00] VITALS: BP 139/81; PULSE 87; RESP 18; TEMP 36.6; O2SAT 97
--- NOTE | 2025-04-09 03:03 | XR_ITS ---
Examination: Duplex scan of the lower extremity, unilateral left Date and time of exam: April 09, 2025 0402 hours INDICATIONS: Left leg pain several weeks Technique: Duplex scan of the extremity veins using B-mode/grayscale imaging and Doppler spectral analysis and color flow Attention is directed to internal echogenicity, compression and augmentation involving these veins, color flow assessment, spectral analysis Findings: Major deep venous structures in the extremity demonstrate normal course and caliber. There is no evidence of deep vein thrombosis. Normal color flow and spectral analysis Impression: Negative for DVT..
--- NOTE | 2025-04-09 03:03 | XR_ITS ---
Examination: Foot, left, 3 views Technique: AP, oblique, lateral views foot, 3 views Date and time of exam: April 09, 2025 0356 hours INDICATIONS: Injury to the foot today, foot pain. FINDINGS: Acute fracture , mild offset mid to distal fifth metatarsal shaft Severe osteopenia IMPRESSION: Acute fracture fifth metatarsal
[2025-04-09 05:16] LABS: Collection Type, Urine Catheter
--- NOTE | 2025-04-09 05:23 | EKG_ITS ---
[facility] Test Date: 2025-04-09 Pat Name: TORO MOURA Department: Room: - Gender: Male Dental Patient Coordinator: : 1935 Requested By: Cece Marin Order Number: [id number] Reading MD: Cece Marin Measurements Intervals [place] Rate: 103 P: 51 WV: 228 QRS: 30 QRSD: 80 T: 42 QT: 344 QTc: 452 Interpretive Statements POSSIBLE RIGHT VENTRICULAR CONDUCTION DELAY [RSR (QR) IN V1/V2] POSSIBLE SEPTAL MYOCARDIAL INFARCTION , PROBABLY OLD [30 ms Q WAVE IN V1/V2] Compared to ECG 09/21/2024 16:11:10 Myocardial infarct finding now present Sinus rhythm no longer present Left-axis deviation no longer present Left ventricular hypertrophy no longer present ST (T wave) deviation no longer present /store/S0/[id number]/ecg/[id number].pdf
--- NOTE | 2025-04-09 05:27 | PRELIM_ITS ---
CT angiogram of the chest aorta with intravenous contrast (axial sections with sagittal and coronal reformats) April 09, 2025 at 0326 hours Clinical History: Dissection. Comparison: CT of October 05, 2015. Findings: The thoracic aorta demonstrates mild atheromatous calcification without evidence of dissection. Aneurysmal dilation of the ascending aorta measuring up to 4.3 cm. The origins of the right brachiocephalic, left common carotid and left subclavian arteries are patent. There is no filling defect within the pulmonary artery divisions to suggest pulmonary thromboembolism. The mediastinum demonstrates no evidence of mass or lymphadenopathy. There is a small pericardial effusion. Right lower lobe consolidation. No evidence of pleural effusion or pneumothorax. Degenerative changes of the imaged portions of the spine. Chronic multilevel disc disease. No acute fractures. Please, see separate report for description of the abdominal findings. Impression: 1. No CT evidence of pulmonary thromboembolism or aortic dissection. 2. Aneurysmal dilatation of the ascending thoracic aorta. Follow-up is recommended. 3. Right lower lobe consolidation, suspicious for pneumonia. 4. Small pericardial effusion, consider pericarditis in the differential diagnosis. Report Electronically Signed By: James Multani 04/09/2025 5:26:39 AM [EST]
--- NOTE | 2025-04-09 05:34 | PRELIM_ITS ---
CT angiogram of abdomen and pelvis with intravenous contrast (axial sections with sagittal and coronal reformats) April 09, 2025 at 0326 hours Clinical History: Abdominal aortic aneurysm, obstruction. Comparison: CT of April 23, 2021. Findings: The abdominal aorta demonstrates mild atheromatous calcification without evidence of dissection. The celiac, superior mesenteric, inferior mesenteric and bilateral renal arteries are patent to the extent visualized. The common iliac, external iliac and internal iliac arteries are patent bilaterally. The liver, gallbladder, spleen, pancreas, and adrenals are unremarkable. Bilateral renal simple cysts. No hydronephrosis. IVC filter in place. No evidence of bowel obstruction. No evidence of appendicitis. The urinary bladder is unremarkable. There is no free fluid, free air or abscess. The osseous structures are unremarkable. The lung bases are clear. 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 Enlarged prostate. Impression: 1. No evidence of abdominal aortic dissection. 2. 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 Vascular surgery consult is recommended. 3. Thickening of the rectosigmoid associated with peripheral fat stranding. 4. Diverticulosis of the colon. 5. Indeterminate abdominal pelvic mass, of uncertain etiology. Further evaluation is recommended. 6. Moderate to severe rectosigmoiditis. 7. Enlarged prostate. Consider correlation with PSA. Report Electronically Signed By: James Multani 04/09/2025 5:34:14 AM [EST]
--- NOTE | 2025-04-09 05:37 | PRELIM_ITS ---
Left lower extremity venous Doppler ultrasound with wave Doppler spectral analysis. April 09, 2025 0402 hours Clinical history: Deep vein thrombosis. Technique: Duplex scan of the left lower extremity deep venous systems was performed utilizing 2D grayscale imaging, Doppler spectral analysis and color flow Doppler and with compression. Comparison: No prior study is available for comparison. Findings: Cheatham scale, color flow and spectral Doppler evaluation of the left lower extremity deep veins was performed. The common femoral, superficial femoral and popliteal veins are patent and compressible. Normal respiratory variation is noted. There is no evidence of occlusive or nonocclusive thrombus. The great saphenous vein is patent and compressible at the level of the saphenofemoral junction. Impression: No sonographic evidence of deep venous thrombosis in the left lower extremity. Report Electronically Signed By: James Multani 04/09/2025 5:36:45 AM [EST]
[2025-04-09 05:54] LABS: Amorphous Crystals,Urine Present (Absent); Bacteria,Urine Rare; Bilirubin,Urine Negative (Negative); Blood,Urine Negative (Negative); Clarity,Urine Clear (Clear/Hazy); Color,Urine Yellow (Lt Yel-Yel); Culture Indicated,Urine Not Indicated; Glucose, Urine Negative (Negative); Hyaline Casts,Urine < 1 /hpf (0-1); Ketones,Urine Negative (Negative); Leukocyte Esterase,Urine Negative (Negative); Nitrite,Urine Negative (Negative); PH,Urine 5.5 (5.0-7.0); Protein,Urine Trace (Neg - Trace); RBC,Urine 2 /hpf (0-3); Specific Gravity,Urine 1.015 (1.001-1.035); Squamous Epithelial Cell,Urine 2 /hpf (0-5); Urobilinogen,Urine Negative mg/dL (0.0-1.0); WBC,Urine 2 /hpf (0-5)
[2025-04-09 06:00] VITALS: BP 127/80; PULSE 88; RESP 19; TEMP 37; O2SAT 95
--- NOTE | 2025-04-09 06:05 | PC.NURSE ---
[facility] contacted for possible transfer for vascular and surgery. Pt has a pelvic mass, rectosigmoiditis as well as an intra abdominal iliac thrombosed aneurysm. Meron from transfer center stated they would review provider notes and imaging reports, which has been faxed over along with face sheet.
[2025-04-09] MEDS: LEVOFLOXACIN/D5W 750MG IVPB 750 MG/150 ML BAG 100 MG IV (06:26)
--- NOTE | 2025-04-09 06:40 | PC.NURSE ---
Transfer center at [facility]- Dr. Hansen states they would need oncology as well as vascular and surgery. They do not have oncology available. Will relay information to oncoming classification inspector for continued transfer process.
--- NOTE | 2025-04-09 06:50 | EDNOTE_ITS ---
Emergency Room Addendum <Celestina Rojas - Last Filed: 04/09/25 09:36> Addendum Narrative: At 6 AM on 04/09/2025, the care of the patient was transferred from Dr. Mills, see his notes for complete H&P and ED course. I reviewed all diagnostic test results: My interpretation of the EKG is right ventricular conduction delay, 103 bpm, with nonspecific ST-T changes.? Dipak Song MD My review of the head CT report is No evidence of intracranial hemorrhage. My review of the CT angiogram of the chest and aorta with IV contrast report is no evidence of PE or aortic dissection, aneurysmal dilatation of the ascending thoracic aorta. 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 My review of the left lower extremity venous Doppler ultrasound is no evidence of DVT. Blood tests and urine tests At this point, diagnoses include Aneurysm artery, iliac, Pneumonia, Fracture of left foot, Constipation. Treatment here included Zofran, Levaquin. At 07:15 I spoke with general surgeon Dr. Ramos. Discussed patients PMHx, HPI, ED course, exam findings, labs, and radiology results. At 07:[address] Ramos reports he will review the images with radiologist and evaluate the patient in the ED. At 09:[address] Ramos has evaluated the patient in the ED. Reports the mass can be treated on an outpatient basis and is not emergent. Significant improvement Based on my best medical judgment, made decision no further evaluation or treatment indicated at this time.? Patient understands and agrees to the discharge instructions customized and printed, see below. Discharge Instructions from Dr. Song printed for you: 1. After extensive evaluation, there are many diagnoses. 2. For early pneumonia, take Levaquin as prescribed. 3. For your iliac artery aneurysm, we discussed the case with vascular surgery at [facility] and with Dr. Gleason, our surgeon here. Both recommended outpatient management because there is no indication for emergent surgery. 4. For your left foot fracture, minimal weightbearing and elevate above the waist level for 3 days. Apply ice for 20 minutes every 2-3 hours today and tomorrow. Ibuprofen 200 mg every 6-8 hours today and tomorrow to decrease inflammation then as needed. Wear the postop shoe and use crutches until cleared by a doctor taking care of you. 5. For your constipation: ?Take Senokot S (not plain Senokot, OTC so prescription not needed), four pills, at bedtime as needed.? And milk of magnesia as prescribed. May take a few days but this will help clear out your bowels. ?To help current constipation and prevent future constipation, increase oral fluid because dehydration cause severe constipation.? Maintain clear urine.? If dark or yellow, increase oral fluid. ?And every day, increase fresh fruits and fresh vegetables and physical exercise. 6. See a private doctor on 04/10/2025 for recheck and further care. Ask to review all test results and official radiology reports, to make sure you receive all necessary follow-ups and monitoring. Ask for help until you are completely better. To make sure there is no serious intra-abdominal condition, ask for help with more investigation not available here in the ER. Such as EGD or scoping the stomach, colonoscopy or scoping the colon, and referral to see publications distribution clerk. Ask for a referral to see vascular surgery as soon as possible. Ask for referral to see orthopedic surgeon for your left foot fracture. 7. Seek immediate medical care with worsening or with any concerns. Dipak Song MD <Dipak Song MD - Last Filed: 04/09/25 10:07> Addendum Narrative: At 6 AM on 04/09/2025, the care of the patient was transferred from Dr. Mills, see her notes for complete H&P and ED course. I reviewed all diagnostic test results. At this point, diagnoses include Iliac Artery Aneurysm, Pneumonia, Fracture of left foot, Constipation. Treatment here included Zofran, Levaquin. [facility] vascular surgery recommended outpatient management of the aneurysm due to it being stable. I discussed the case with our surgeon, Dr. Gleason.? About the presentation and exam and diagnostics and treatments here.? And possible need of further care in the hospital.? Recommend outpatient management because emergent intervention is not indicated. Based on my best medical judgment, made decision no further evaluation or treatment indicated at this time.? Patient understands and agrees to the discharge instructions customized and printed, see below. Discharge Instructions from Dr. Song printed for you: 1. After extensive evaluation, there are many diagnoses. 2. For early pneumonia, take Levaquin as prescribed. 3. For your iliac artery aneurysm, we discussed the case with vascular surgery at [facility] and with Dr. Gleason, our surgeon here. Both recommended outpatient management because there is no indication for emergent surgery. 4. For your left foot fracture, minimal weightbearing and elevate above the waist level for 3 days. Apply ice for 20 minutes every 2-3 hours today and tomorrow. Ibuprofen 200 mg every 6-8 hours today and tomorrow to decrease inflammation then as needed. Wear the postop shoe and use crutches until cleared by a doctor taking care of you. 5. For your constipation: ?Take Senokot S (not plain Senokot, OTC so prescription not needed), four pills, at bedtime as needed.? And milk of magnesia as prescribed. May take a few days but this will help clear out your bowels. ?To help current constipation and prevent future constipation, increase oral fluid because dehydration cause severe constipation.? Maintain clear urine.? If dark or yellow, increase oral fluid. ?And every day, increase fresh fruits and fresh vegetables and physical exercise. 6. See a private doctor on 04/10/2025 for recheck and further care. Ask to review all test results and official radiology reports, to make sure you receive all necessary follow-ups and monitoring. Ask for help until you are completely better. To make sure there is no serious intra-abdominal condition, ask for help with more investigation not available here in the ER. Such as EGD or scoping the stomach, colonoscopy or scoping the colon, and referral to see gastroenterol ogist. Ask for a referral to see vascular surgery as soon as possible. Ask for referral to see orthopedic surgeon for your left foot fracture. 7. Seek immediate medical care with worsening or with any concerns. Dipak Song MD
[2025-04-09 07:17] VITALS: BMI 23.6
[2025-04-09 07:49] VITALS: BP 129/80; PULSE 81; RESP 17; O2SAT 95
[2025-04-09 10:18] VITALS: BP 128/74; PULSE 83; RESP 17; O2SAT 96
--- NOTE | 2025-04-09 16:43 | PD.SURCONS ---
HPI Consult details Consult date: 04/09/25 Reason for consultation narrative: Patient was seen in consultation for review of the CT scan for possible aneurysm of the common iliac artery. History of present illness: This 89-year-old -[place] male came to the emergency room complaining of constipation and not having bowel movements. He was having problem evacuating but after coming here his had bowel movements and had no more complaints. When I saw him at the bedside in bed 5 he said he does not have any complaints of abdominal pain. Patient has had a history of aortic aneurysms for which he had under gone endovascular prosthesis in [place] 7 years ago. He is not following with them anymore. He does not have any pain over the lower extremities. Meds Home Medications and Allergies Home Medications ?Medication ?Instructions ?Recorded ?Confirmed ?Type Amitriptyline Hcl * (ELAVIL *) 10 mg PO BID #0 tabs 12/05/16 History Aspirin Ec * (ECOTRIN *) 81 mg PO QDAY ##0 12/05/16 History Doxazosin Mesylate 2 mg PO QDAY ##0 12/05/16 History Misoprostol * (CYTOTEC *) 2 tab PO BID #0 tabs 12/05/16 History Multivitamins * (CENTRUM *) 1 tab PO QDAY #0 tabs 12/05/16 History Promethazine Hcl SYRUP * 2 tbsp PO Q6HR PRN COUGH #0 mL 12/05/16 History (PHENERGAN SYRUP *) baclofen 10 mg tablet 10 mg PO QDAY #0 tabs 12/05/16 History cyanocobalamin (vitamin B-12) 1,000 mcg PO QDAY #0 tabs 12/05/16 History 1,000 mcg tablet (Vitamin B-12) glipizide 5 mg tablet 5 mg PO QDAY #0 tabs 12/05/16 History hydrochlorothiazide 25 mg tablet 12.5 mg PO QDAY #0 tabs 12/05/16 History lisinopril 10 mg tablet 5 mg PO QDAY #0 tabs 12/05/16 History lisinopril 20 mg tablet 10 mg PO QDAY #0 tabs 12/05/16 History loratadine 10 mg tablet (Claritin) 10 mg PO QDAY #0 tabs 12/05/16 History pioglitazone 30 mg tablet (Actos) 30 mg PO QDAY #0 tabs 12/05/16 History ranitidine HCl 150 mg tablet 150 mg PO BID #0 tabs 12/05/16 History (Zantac) venlafaxine 75 mg capsule,extended 75 mg PO QDAY ##0 12/05/16 History release 24 hr (Effexor XR) Allergies Allergy/AdvReac Type Severity Reaction Status Date / Time Penicillins Allergy Severe Swelling Verified 09/21/24 15:36 of Lip/Tongue/Throat shellfish derived Allergy Severe Swelling Verified 09/21/24 15:36 Exam Vital Signs Temp Pulse Resp BP Pulse Ox O2 Del Method 98.6 F 83 17 128/74 96 Room Air 04/09/25 06:00 04/09/25 10:18 04/09/25 10:18 04/09/25 10:18 04/09/25 10:18 04/09/25 07:49 Narrative Exam My physical examination revealed 89-year-old -[place] male with normal vital signs Constitutional Constitutional: no acute distress Routine Abdominal Exam Comments: Examination of the abdomen showed no palpable abnormality in the pelvic region or anywhere in the abdomen. Results Results: Laboratory Laboratory Narrative: Patient's laboratory workup showed leukocytosis of 17,000 Results: Imaging Imaging narrative: CT scan of the abdomen and pelvis showed mass in the lower abdomen consistent with aneurysm. I reviewed the x-rays with Dr. Patrick who showed the lesion but it is not palpable. This mass is displacing the bladder superiorly and laterally. Assessment & Plan Additional Assessment Additional comments: Impression: History of aneurysm treated with endovascular prosthesis Plan Plan: I do not think the patient requires any further care at this time. He has already been consulted by vascular surgeon Dr. Rodriguez in [place]. Patient was advised to follow-up with him if necessary. No general surgical intervention is required at this time. Thank
== END 2025-04-09 10:18 | disposition home or self-care (01) ==
PROVIDERS: Emergency Medicine; Emergency Provider Emergency Medicine; PCP Family Medicine
DX: R55 Syncope and collapse (principal); M79.672 Pain in left foot; J18.9 Pneumonia, unspecified organism; K52.9 Noninfective gastroenteritis and colitis, unspecified; I72.3 Aneurysm of iliac artery; D72.829 Elevated white blood cell count, unspecified; I71.21 Aneurysm of the ascending aorta, without rupture; K59.00 Constipation, unspecified; I31.39 Other pericardial effusion (noninflammatory); N40.0 Benign prostatic hyperplasia without lower urinary tract symptoms; K57.30 Diverticulosis of large intestine without perforation or abscess without bleeding; R19.00 Intra-abdominal and pelvic swelling, mass and lump, unspecified site; M47.816 Spondylosis without myelopathy or radiculopathy, lumbar region; R91.8 Other nonspecific abnormal finding of lung field; S92.352A Displaced fracture of fifth metatarsal bone, left foot, initial encounter for closed fracture; X58.XXXA Exposure to other specified factors, initial encounter
CPT/HCPCS: 36415; 70450; 71275; 73630; 74174; 80053; 81001; 82550; 83605; 84484; 85025; 85610; 93005; 93971; 96365; 99291; A4649; J1956; J2405; Q9967